=== PATIENT | male | born 1955 | race Caucasian/White ===

== ENCOUNTER 2018-12-12 21:37 | Emergency (ER) | payer MEDICARE ==
[~2018-12-12] VITALS: Wt 84.6 kg
--- NOTE | ~2018-12-12 | EKG ---
[place], [place] ELECTROCARDIOGRAM REPORT NAME: RUSS ELIZONDO UNIT #: [id number] ROOM: DOCTOR: EPIPHANY DRAFT REPORT BIRTHDATE: [birth year] [facility] Test Date: 2018-12-12 Test Time: 21:57:31 Pat Name: RUSS ELIZONDO Department: ER Room: 7 Gender: M [employer]: Elie Chen : 1955 Requested By: TAPAN PICHARDO Order Number: [id number] Reading MD: Ramonita Monteiro MD Measurements Intervals [place] Rate: 65 P: 6 HI: 164 QRS: -40 QRSD: 105 T: -6 QT: 380 QTc: 396 Interpretive Statements Sinus rhythm Left anterior fascicular block Abnormal R-wave progression, late transition Borderline T abnormalities, inferior leads Compared to ECG 09/25/2018 10:12:59 Left anterior fascicular block now present Left-axis deviation no longer present T-wave abnormality still present Electronically Signed On 12-13-2018 14:47:54 PDT by Ramonita Monteiro MD CM:EKGRPT:ELECTROCARDIOGRAM REPORT [id number] TAPAN PICHARDO MD EPIPHANY DRAFT REPORT TAPAN PICHARDO MD
[~2018-12-12 21:37] MED LIST: ANTIVERT25 MG PO; ASPI-COR81 M1 PO; ASPIRIN ADULT L81 M1 PO; ATIVAN1 MG PO; BISACODYL LAXATI5 MG PO; BISCOLAX10 M1 R; BUMEX1 MG PO; CARBIDOPA-LEVO1 EAC6 PO; CARBIDOPA/LEVOD1 TA1 PO; CARVEDILOL12.5 MG PO; CLONIDINE0.2 MG PO; COMTAN200 MG PO; COREG12.5 M1 PO; COREG12.5 MG PO; Cepacol PO; DOXYCYCLINE100 M3 PO; FLUDROCORTISON0.1 MG PO; GOOD SENSE400 MG/5 M PO; Ipratropium Brom3 ML NEB; K-DUR 20MEQ20 MEQ PO; KEPPRA500 MG PO; LISINOPRIL10 M1 PO; LISINOPRIL20 MG PO; LISINOPRIL40 MG PO; LISINOPRIL5 MG PO; MIDODRINE HCL5 M1 PO; MIRAPEX0.25 MG PO; MOTRIN 600 MG E4 TAB PO; NEURONTIN300 MG PO; NORVASC10 MG PO; NORVASC5 MG PO; PROZAC40 MG PO; SELEGILINE HCL5 M1 PO; SELEGILINE HCL5 M2 PO; SINEMET 25-1001 EACH PO; SINEMET CR 50-1 EACH PO; TAMIFLU 75MG CA75 MG PO; TYLENOL325 M2 PO; Vitamin D PO; ZOFRAN 4 MG ED2 TAB PO
[2018-12-12 22:09] LABS: BASO # 0.1 10*3/uL (0.0-0.1); EOS # 0.2 10*3/uL (0.0-0.4); HEMATOCRIT 46.5 % (42.0-52.0); HEMOGLOBIN 15.4 g/dl (14.0-18.0); LYMPH # 1.8 10*3/uL (1.3-4.4); LYMPH % 26.4 % (27.0-41.0); MEAN CELL VOLUME 92.3 fl (80.0-94.0); MEAN CORPUSCULAR HGB 30.6 pg (27.0-31.0); MEAN CORPUSCULAR HGB CONC 33.1 g/dl (33.0-37.0); MEAN PLATELET VOLUME 9.3 fl (9.6-12.3); MONO # 0.8 10*3/uL (0.1-1.0); MONO % 11.5 % (3.0-9.0); NEUT % 57.8 % (47.0-73.0); PLATELET COUNT AUTOMATED 200 10*3/uL (130-400); RED BLOOD COUNT 5.04 10*6/uL (4.50-5.90); RED CELL DISTRI WIDTH 13.6 % (0-14.5)
[2018-12-12 22:23] LABS: ACT PARTIAL THROMBO TIME 26.6 SECONDS (20.0-32.1)
[2018-12-12 22:25] LABS: ALBUMIN 3.8 gm/dl (3.1-4.5); ALKALINE PHOSPHATASE 71 U/L (45-117); BUN 18 mg/dl (7-24); CHLORIDE 106 mmol/L (98-107); CREATININE 1.05 mg/dL (0.70-1.30); LIPASE 182 U/L (73-393); POTASSIUM 3.7 mmol/L (3.5-5.1); SGOT/AST 16 IU/L (3-35); SGPT/ALT 8 U/L (12-78); SODIUM 139 mmol/L (136-145); TOTAL PROTEIN 6.7 gm/dL (6.4-8.2); TROPONIN I < 0.015 ng/ml (<0.045)
[2018-12-12] MEDS ORDERED: SINEMET 25-1001 EACH PO (23:08)
== END 2018-12-12 23:45 | disposition home or self-care (01) ==
LOC: ED 21:37
PROVIDERS: Emergency Medicine Emergency Medical Services
DX: G20 Parkinson's disease (principal); I10 Essential (primary) hypertension; G40.909 Epilepsy, unspecified, not intractable, without status epilepticus; R79.1 Abnormal coagulation profile; Z86.73 Personal history of transient ischemic attack (TIA), and cerebral infarction without residual deficits

== ENCOUNTER 2019-01-15 12:34 | Inpatient (IN) | payer MEDICARE ==
[~2019-01-15] VITALS: Ht 175.3 cm; Wt 82.6 kg
[2019-01-15] VITALS (7 sets, daily range): BP systolic 117–190; BP diastolic 75–112
--- NOTE | ~2019-01-15 | EKG ---
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
[2019-01-15 13:08] LABS: BASO # 0.1 10*3/uL (0.0-0.1); BASO % 0.7 % (0.0-1.0); EOS % 0.4 % (1.0-4.0); LYMPH # 0.7 10*3/uL (1.3-4.4); LYMPH % 9.9 % (27.0-41.0); MEAN CELL VOLUME 91.8 fl (80.0-94.0); MEAN CORPUSCULAR HGB 29.9 pg (27.0-31.0); MEAN CORPUSCULAR HGB CONC 32.6 g/dl (33.0-37.0); MEAN PLATELET VOLUME 8.9 fl (9.6-12.3); MONO # 0.5 10*3/uL (0.1-1.0); MONO % 7.7 % (3.0-9.0); NEUT # 5.6 10*3/uL (2.3-7.9); NEUT % 80.4 % (47.0-73.0); PLATELET COUNT AUTOMATED 200 10*3/uL (130-400); RED BLOOD COUNT 5.01 10*6/uL (4.50-5.90); RED CELL DISTRI WIDTH 13.4 % (0-14.5); WHITE BLOOD COUNT 6.9 10*3/uL (4.8-10.8)
[2019-01-15 13:18] LABS: ACT PARTIAL THROMBO TIME 24.7 SECONDS (20.0-32.1)
[2019-01-15 13:25] LABS: ALBUMIN 3.6 gm/dl (3.1-4.5); ALKALINE PHOSPHATASE 57 U/L (45-117); BUN 20 mg/dl (7-24); CHLORIDE 106 mmol/L (98-107); CREATININE 1.04 mg/dL (0.70-1.30); POTASSIUM 4.1 mmol/L (3.5-5.1); SGOT/AST 14 IU/L (3-35); SGPT/ALT 9 U/L (12-78); SODIUM 138 mmol/L (136-145); TOTAL PROTEIN 6.6 gm/dL (6.4-8.2)
[2019-01-15 13:28] LABS: TROPONIN I < 0.015 ng/ml (<0.045)
[2019-01-15 15:27] LABS: BILIRUBIN NEGATIVE (NEGATIVE); BLOOD NEGATIVE (NEGATIVE); CLARITY CLEAR (CLEAR); COLOR YELLOW (YELLOW); GLUCOSE NEGATIVE (NEGATIVE); KETONE NEGATIVE (NEGATIVE); LEUKO ESTERASE NEGATIVE (NEGATIVE); NITRITE NEGATIVE (NEGATIVE); SPECIFIC GRAVITY <= 1.005 (1.005-1.030); UROBILINOGEN 0.2 E.U./dl (0.2-1.0)
[2019-01-15] MEDS ORDERED: Sinemet Cr 50/21 TAB PO (15:38)
[2019-01-15] MEDS ORDERED: SINEMET 25-1001 EACH PO (15:40)
[2019-01-15 15:43] LABS: EPITHELIAL CELLS 0-2; WBC 0-2 wbc/hpf (0-5)
[2019-01-15] MEDS ORDERED: NORVASC5 MG PO (17:19)
[2019-01-15] MEDS ORDERED: ASPIRIN ADULT L81 M1 PO (17:20)
[2019-01-15] MEDS ORDERED: PRINIVIL5 M1 PO (17:21)
[2019-01-16] VITALS: BP 120/79
[2019-01-16 06:19] LABS: BASO # 0.1 10*3/uL (0.0-0.1); BASO % 0.9 % (0.0-1.0); EOS # 0.1 10*3/uL (0.0-0.4); EOS % 1.7 % (1.0-4.0); HEMATOCRIT 49.8 % (42.0-52.0); HEMOGLOBIN 16.1 g/dl (14.0-18.0); LYMPH # 1.8 10*3/uL (1.3-4.4); LYMPH % 23.4 % (27.0-41.0); MEAN CELL VOLUME 92.2 fl (80.0-94.0); MEAN CORPUSCULAR HGB 29.8 pg (27.0-31.0); MEAN CORPUSCULAR HGB CONC 32.3 g/dl (33.0-37.0); MEAN PLATELET VOLUME 9.3 fl (9.6-12.3); MONO # 0.8 10*3/uL (0.1-1.0); MONO % 10.1 % (3.0-9.0); NEUT # 4.8 10*3/uL (2.3-7.9); NEUT % 63.5 % (47.0-73.0); PLATELET COUNT AUTOMATED 227 10*3/uL (130-400); RED CELL DISTRI WIDTH 13.5 % (0-14.5); WHITE BLOOD COUNT 7.5 10*3/uL (4.8-10.8)
[2019-01-16 06:55] LABS: BUN 14 mg/dl (7-24); CHLORIDE 106 mmol/L (98-107); POTASSIUM 3.6 mmol/L (3.5-5.1); SODIUM 140 mmol/L (136-145)
[2019-01-16 06:58] LABS: ALKALINE PHOSPHATASE 68 U/L (45-117); CREATININE 0.98 mg/dL (0.70-1.30); PHOSPHOROUS 2.7 mg/dL (2.5-4.9); SGOT/AST 18 IU/L (3-35); SGPT/ALT 9 U/L (12-78); TOTAL PROTEIN 7.1 gm/dL (6.4-8.2)
[2019-01-16 08:00] VITALS: BP 147/86
[2019-01-16 12:00] VITALS: BP 145/85
[2019-01-16 16:00] VITALS: BP 143/81
== END 2019-01-16 17:39 | disposition home or self-care (01) | DRG 923 ==
LOC: ED 12:34 → 4E 14:01 → EDHOLD 14:01 → 4E 14:24
PROVIDERS: Family Medicine; ADMIT Emergency Medicine
DX: T67.5XXA Heat exhaustion, unspecified, initial encounter (principal); E86.0 Dehydration; R26.2 Difficulty in walking, not elsewhere classified; G20 Parkinson's disease; G40.909 Epilepsy, unspecified, not intractable, without status epilepticus; E55.9 Vitamin D deficiency, unspecified; F32.9 Major depressive disorder, single episode, unspecified; I10 Essential (primary) hypertension; R73.9 Hyperglycemia, unspecified; I16.0 Hypertensive urgency; X32.XXXA Exposure to sunlight, initial encounter; Y92.89 Other specified places as the place of occurrence of the external cause; Y93.H2 Activity, gardening and landscaping; Y99.8 Other external cause status; Z86.73 Personal history of transient ischemic attack (TIA), and cerebral infarction without residual deficits; Z82.49 Family history of ischemic heart disease and other diseases of the circulatory system

== ENCOUNTER 2019-04-22 09:24 | Emergency (ER) | payer MEDICARE ==
[~2019-04-22] VITALS: Ht 172.7 cm; Wt 83.9 kg
--- NOTE | ~2019-04-22 | EKG ---
[place], [place] ELECTROCARDIOGRAM REPORT NAME: RUSS ELIZONDO UNIT #: [id number] ROOM: DOCTOR: EMILIANO DRAFT REPORT BIRTHDATE: [birth year] [facility] Test Date: 2019-04-22 Test Time: 09:37:24 Pat Name: RUSS ELIZONDO Department: Room: Gender: Position Classifier: : 1955 Requested By: RAYMUNDO CADENA Order Number: [id number] Reading MD: Saw Crenshaw MD Measurements Intervals [place] Rate: 77 P: 22 MI: 161 QRS: -40 QRSD: 103 T: 2 QT: 369 QTc: 418 Interpretive Statements Sinus rhythm Left axis deviation Nonspecific IVCD Abnormal R-wave progression, late transition Electronically Signed On 04-23-2019 4:55:54 PDT by Saw Crenshaw MD CM:EKGRPT:ELECTROCARDIOGRAM REPORT [id number] RAYMUNDO CUMMINGS DRAFT REPORT RAYMUNDO CADENA MD
[~2019-04-22 09:24] MED LIST changes: +PRINIVIL5 M1 PO; +Sinemet Cr 50/21 TAB PO
[2019-04-22 09:53] LABS: BASO % 0.6 % (0.0-1.0); EOS # 0.1 10*3/uL (0.0-0.4); EOS % 0.7 % (1.0-4.0); HEMATOCRIT 46.9 % (42.0-52.0); HEMOGLOBIN 15.6 g/dl (14.0-18.0); LYMPH # 1.2 10*3/uL (1.3-4.4); LYMPH % 16.5 % (27.0-41.0); MEAN CELL VOLUME 92.1 fl (80.0-94.0); MEAN CORPUSCULAR HGB 30.6 pg (27.0-31.0); MEAN CORPUSCULAR HGB CONC 33.3 g/dl (33.0-37.0); MEAN PLATELET VOLUME 9.2 fl (9.6-12.3); MONO # 0.7 10*3/uL (0.1-1.0); MONO % 9.4 % (3.0-9.0); NEUT # 5.2 10*3/uL (2.3-7.9); NEUT % 72.4 % (47.0-73.0); PLATELET COUNT AUTOMATED 210 10*3/uL (130-400); RED BLOOD COUNT 5.09 10*6/uL (4.50-5.90); RED CELL DISTRI WIDTH 13.6 % (0-14.5); WHITE BLOOD COUNT 7.2 10*3/uL (4.8-10.8)
[2019-04-22 10:03] LABS: ACT PARTIAL THROMBO TIME 25.9 SECONDS (20.0-32.1)
[2019-04-22 10:13] LABS: ALBUMIN 4.1 gm/dl (3.1-4.5); ALKALINE PHOSPHATASE 59 U/L (45-117); BUN 35 mg/dl (7-24); CHLORIDE 103 mmol/L (98-107); POTASSIUM 4.1 mmol/L (3.5-5.1); SGOT/AST 74 IU/L (3-35); SGPT/ALT 15 U/L (12-78); SODIUM 135 mmol/L (136-145); TOTAL PROTEIN 7.2 gm/dL (6.4-8.2)
[2019-04-22 10:15] LABS: TROPONIN I < 0.015 ng/ml (<0.045)
[2019-04-22 11:03] LABS: BILIRUBIN NEGATIVE (NEGATIVE); BLOOD 2+ (NEGATIVE); CLARITY SL CLOUDY (CLEAR); COLOR YELLOW (YELLOW); GLUCOSE NEGATIVE (NEGATIVE); KETONE NEGATIVE (NEGATIVE); LEUKO ESTERASE NEGATIVE (NEGATIVE); NITRITE NEGATIVE (NEGATIVE); PH 5.5 (5.0-9.0); UROBILINOGEN 0.2 E.U./dl (0.2-1.0)
[2019-04-22 11:17] LABS: BACTERIA TRACE; CALCIUM OXALATE CRYSTALS 1+; EPITHELIAL CELLS 0-2
[2019-04-22 13:14] LABS: URINE AMPHETAMINES > 1000 (1000ng/ml); URINE BARBITURATES < 200 (200ng/ml); URINE BENZODIAZEPINES < 200 (200ng/ml); URINE CANNABINOIDS (THC) < 50 (50ng/ml); URINE COCAINE < 300 (300ng/ml); URINE METHADONE < 300 (300ng/ml); URINE OPIATES < 300 (300ng/ml)
[2019-04-22 13:15] LABS: URINE PHENCYCLIDINE < 25 (25ng/ml)
== END 2019-04-22 12:55 | disposition short-term general hospital (02) ==
LOC: ED 09:24
PROVIDERS: Emergency Medicine
DX: H53.2 Diplopia (principal); R42 Dizziness and giddiness; F14.10 Cocaine abuse, uncomplicated; I10 Essential (primary) hypertension; E66.3 Overweight; G40.909 Epilepsy, unspecified, not intractable, without status epilepticus; Z90.89 Acquired absence of other organs; Z86.73 Personal history of transient ischemic attack (TIA), and cerebral infarction without residual deficits; Z68.29 Body mass index [BMI] 29.0-29.9, adult; Z79.82 Long term (current) use of aspirin; Z79.899 Other long term (current) drug therapy

== ENCOUNTER 2020-02-11 05:14 | Emergency (ER) | payer MEDICARE ==
[~2020-02-11] VITALS: Ht 175.2 cm; Wt 81.6 kg
== END 2020-02-11 06:51 | disposition home or self-care (01) ==
LOC: ED 05:14
DX: R26.2 Difficulty in walking, not elsewhere classified (principal); G20 Parkinson's disease; I10 Essential (primary) hypertension; Z86.73 Personal history of transient ischemic attack (TIA), and cerebral infarction without residual deficits; Z79.899 Other long term (current) drug therapy; Z79.82 Long term (current) use of aspirin; W18.39XA Other fall on same level, initial encounter; Y93.89 Activity, other specified; Y92.098 Other place in other non-institutional residence as the place of occurrence of the external cause; Y99.8 Other external cause status

== ENCOUNTER 2020-05-30 09:52 | Observation (INO) | payer MEDICARE ==
[~2020-05-30] VITALS: Ht 172.7 cm; Wt 86.2 kg
[2020-05-30] VITALS (12 sets, daily range): BP systolic 126–186; BP diastolic 85–105
[2020-05-30 10:30] LABS: BASO # 0.1 10*3/uL (0.0-0.1); BASO % 0.6 % (0.0-1.0); EOS # 0.1 10*3/uL (0.0-0.4); EOS % 1.1 % (1.0-4.0); HEMATOCRIT 46.6 % (42.0-52.0); LYMPH # 1.6 10*3/uL (1.3-4.4); LYMPH % 20.2 % (27.0-41.0); MEAN CORPUSCULAR HGB 29.5 pg (27.0-31.0); MEAN CORPUSCULAR HGB CONC 32.4 g/dl (33.0-37.0); MONO # 0.7 10*3/uL (0.1-1.0); MONO % 8.4 % (3.0-9.0); NEUT # 5.6 10*3/uL (2.3-7.9); NEUT % 69.1 % (47.0-73.0); PLATELET COUNT AUTOMATED 199 10*3/uL (130-400); RED BLOOD COUNT 5.12 10*6/uL (4.50-5.90); RED CELL DISTRI WIDTH 13.7 % (0-14.5); WHITE BLOOD COUNT 8.1 10*3/uL (4.8-10.8)
[2020-05-30 10:52] LABS: ALBUMIN 3.9 gm/dl (3.1-4.5); ALKALINE PHOSPHATASE 64 U/L (45-117); BUN 19 mg/dl (7-24); CHLORIDE 107 mmol/L (98-107); CREATININE 0.99 mg/dL (0.70-1.30); POTASSIUM 4.1 mmol/L (3.5-5.1); SGOT/AST 17 IU/L (3-35); SGPT/ALT 10 U/L (12-78); SODIUM 139 mmol/L (136-145)
[2020-05-30 11:02] LABS: TROPONIN I < 0.015 ng/ml (<0.045)
--- NOTE | 2020-05-30 11:56 | NUR ---
PT. WAS NOT COMFORTABLE IN BED. PT. REQUESTED TO SIT IN WHEELCHAIR. PT. IS NOW SITTING IN WHEELCHAIR BESIDE BED. RR EASY AND NON-LABORED. CALL LIGHT WITHIN REACH. APPEARS TO BE IN NO DISTRESS AT THIS TIME. WILL CONTINUE TO MONITOR.
[2020-05-30] MEDS ORDERED: ENTACAPONE200 M1 PO (17:19)
[2020-05-30] MEDS ORDERED: LISINOPRIL20 MG PO (17:21)
[2020-05-30] MEDS ORDERED: MIRTAZAPINE15 M2 PO (17:22)
[2020-05-30] MEDS ORDERED: ATORVASTATIN CA80 M1 PO (17:22)
[2020-05-30] MEDS ORDERED: PLAVIX75 M1 PO (17:23)
--- NOTE | 2020-05-30 22:43 | NUR ---
PATIENT REQUESTED SOMETHING TO "HELP ME SLEEP" RESTORIL GIVEN PER ORDER. SEE MAR.
--- NOTE | 2020-05-30 23:20 | NUR ---
CALLED PODIATRY RESIDENT AND NOTIFIED HER OF CONSULT FOR TOE NAIL CARE. SHE AGREED TO TAKE PATIENT.
--- NOTE | 2020-05-30 23:40 | NUR ---
RESTORIL HELPING PER PATIENT IS GETTING DROWSY.
[2020-05-31] VITALS: BP 153/90
--- NOTE | 2020-05-31 05:05 | NUR ---
24 HR chart check completed.
[2020-05-31 05:40] VITALS: BP 139/75
--- NOTE | 2020-05-31 05:44 | NUR ---
MEDICAL RELEASE FORM SIGNED BY PATIENT FOR MEDICAL RECORDS FROM [facility]. COVID SWAB OBTAINED AND SENT TO LAB FOR TESTING. BP 139/75
[2020-05-31 06:37] LABS: BASO # 0.1 10*3/uL (0.0-0.1); BASO % 0.7 % (0.0-1.0); EOS # 0.1 10*3/uL (0.0-0.4); EOS % 1.6 % (1.0-4.0); HEMATOCRIT 47.7 % (42.0-52.0); LYMPH # 1.9 10*3/uL (1.3-4.4); LYMPH % 28.9 % (27.0-41.0); MEAN CORPUSCULAR HGB 28.6 pg (27.0-31.0); MEAN CORPUSCULAR HGB CONC 31.4 g/dl (33.0-37.0); MEAN PLATELET VOLUME 9.6 fl (9.6-12.3); MONO # 0.7 10*3/uL (0.1-1.0); NEUT # 3.9 10*3/uL (2.3-7.9); NEUT % 58.2 % (47.0-73.0); PLATELET COUNT AUTOMATED 199 10*3/uL (130-400); RED BLOOD COUNT 5.24 10*6/uL (4.50-5.90); RED CELL DISTRI WIDTH 13.3 % (0-14.5); WHITE BLOOD COUNT 6.7 10*3/uL (4.8-10.8)
[2020-05-31 06:48] LABS: ALBUMIN 3.5 gm/dl (3.1-4.5); ALKALINE PHOSPHATASE 54 U/L (45-117); BUN 18 mg/dl (7-24); CHLORIDE 107 mmol/L (98-107); CREATININE 0.95 mg/dL (0.70-1.30); POTASSIUM 4.1 mmol/L (3.5-5.1); SGOT/AST 13 IU/L (3-35); SGPT/ALT 9 U/L (12-78); SODIUM 140 mmol/L (136-145); TOTAL PROTEIN 6.3 gm/dL (6.4-8.2)
[2020-05-31 08:00] VITALS: BP 135/74
[2020-05-31 12:00] VITALS: BP 129/85
--- NOTE | 2020-05-31 15:43 | NUR ---
Shrimp Cleaner in to talk to patient. Patient states lives at home with family. There are no steps in the home. Physician: pepe [facility]connell [facility]acy: [facility] Home health services: none Patient's level of ADLs: MINIMAL ASSIST Patient has working utilities: all working DME: walker Follow-up physician's appointment after d/c: will be by hospitalist nurse director upon discharge Does patient want to access PORTAL?: no Discharge plan discussed with patient, he states he lives at home with family, he stated he was weak at this time, he has a walker to use for ambulation, discussed with him a short term prison for 5 days of rehab and he was receptive to this, given choice of facilities he stated he was at [facility] in the past and he would like to be referred there. referral will be made to [facility], case management will follow. DESI WILLIAMSON
[2020-05-31 16:00] VITALS: BP 147/87
[2020-05-31 20:00] VITALS: BP 102/65; BP 124/81
[2020-06-01] VITALS (7 sets, daily range): BP systolic 102–161; BP diastolic 60–94
--- NOTE | 2020-06-01 13:00 | NUR ---
Patient requesitng a referral to [facility] for rehab. Faxed initial referral, requires precert. Will need PT/OT evals, precert and covid test results prior to discharge.
--- NOTE | 2020-06-01 23:29 | NUR ---
New orders rec'd per Dr. Feldman to restart IV.
[2020-06-02] VITALS (8 sets, daily range): BP systolic 114–140; BP diastolic 72–92
--- NOTE | 2020-06-02 08:45 | NUR ---
Occupational Therapy evaluation completed on 5 with full eval to follow. Recommendations include OT per POC and SNF to enable return home alone at [facility]. Thank you Sabi Rodriguez OTR/L
--- NOTE | 2020-06-02 08:45 | NUR ---
PHYSICAL THERAPY Physical Therapy evaluation completed on 5th floor with full evaluation to follow. Recommend physical therapy per plan of care and SNF upon discharge. Thank you for this referral. Yudelka Fisher PT
--- NOTE | 2020-06-02 10:33 | NUR ---
CAMP NURSE FAXED PT/OT EVALS TO [facility] FOR PRECERT TO BE STARTED.
[2020-06-02] MEDS ORDERED: Zestril,Prinivi40 MG PO (12:54)
[2020-06-02] MEDS ORDERED: TEMAZEPAM15 M1 PO (12:54)
--- NOTE | 2020-06-02 13:22 | NUR ---
PRECERT HAS BEEN STARTED.
[2020-06-03] VITALS: BP 110/62
[2020-06-03 05:58] VITALS: BP 161/89
[2020-06-03 08:00] VITALS: BP 146/87
--- NOTE | 2020-06-03 08:25 | NUR ---
OT NOTE Pt was seen this A.M. 1:1 for 24 minute OT session. Upon arrival pt was supine in bed. Pt identified by name and and had no complaints at this time. Pt transferred supine to sit EOB with SBA. While sitting EOB pt donned pants and socks with SBA. Sit to stand completed from bed level with CGA for safety. Challenged pt's static standing tolerance needed for increased I in self care tasks and functional transfers. Pt was able to tolerate aprox 5 minutes at a time before sitting due to fatigue. Functional mobility completed to the bathroom with CGA and use of w/w. There he transferred on/off standard commode with CGA and use of grab bar for UE support. He then stood sink side while washing his hands with CGA for safety. Pt then required a seated rest break due to fatigue. Functional mobility completed from the bathroom to the recliner with CGA and use of w/w. Challenged pt's dynamic standing balance while weight shifting, crossing midline, and reaching over all planes and pt was able to maintain F- standing balance requiring UE support. Pt was left sitting upright in the recliner with call light in hand, tray table in place, and body alarm activated for safety. COntinue with rec D/C plan to SNF. ZAHEER Carter/Rylie
--- NOTE | 2020-06-03 08:48 | NUR ---
PRECERT STARTED ON 06/02/2020. PRINTING MACHINE OPERATOR FAXED UPDATES TO [facility].
--- NOTE | 2020-06-03 09:05 | NUR ---
PHYSICAL THERAPY TREATMENT TIME: OUT 08:15 AM 18 MINUTES TOTAL Patient presented to therapy n supine in bed wit hhead of bed slightly elevated and bed alarm on. Patient reports 0/10 pain. Patient gives informed consent for treatment. Patient was identified by name and on wristband. Patient performed supine to sitting on EOB with SBA. Patient sat on EOB with Supervision. Patient performed STS <> EOB with SBA. Patient ambulated to bathroom with Walker and Close Supervision 26' X 1 and then STS <> COMMODE with SBA. Patient ambulated another 15' x 1 with Wh Walker to chair where he sat in low chair for rest break with SBA. STS from low chair with SBA. Patient ambulated another 15' x 1 to bedside chair with CGA for safety because of LE weakness with no LOB. Patient required verbal cues for upright posture, pushing down on walker wiith hands, staying within CAMMIE of Walker and locking knees into extension to prevent knee buckle. Patient was left in bedside chair with call light within reach, chair alarm tested and attached to patient and LEs in low position. Tray table left in front of patient. Patient was 1:1 with this SCRATCH BRUSHER for 18 minutes total. MELY FELIX SCRATCH BRUSHER
--- NOTE | 2020-06-03 09:35 | NUR ---
MEDICATED WITH PRN PO MILK OF MAGNESIA FOR CONSTIPATION.
--- NOTE | 2020-06-03 11:33 | NUR ---
SOFTWARE DEVELOPMENT MANAGER COMPLETED HENS.
[2020-06-03] MEDS ORDERED: TEMAZEPAM15 M1 PO (11:49)
[2020-06-03] MEDS ORDERED: RESTORIL15 MG PO ×2 (11:51→11:54)
--- NOTE | 2020-06-03 11:54 | NUR ---
PRECERT FOR HAS BEEN OBTAINED.
--- NOTE | 2020-06-03 12:22 | NUR ---
NURSING PROGRAM COORDINATOR NOTIFIED OF PATIENT DISCHARGE. NURSING PROGRAM COORDINATOR SPOKE WITH ELEUTERIO ESCOBAR. NURSING PROGRAM COORDINATOR ARRANGED FOR [facility] TO TRANSPORT THE PATIENT AT 2PM. NURSING PROGRAM COORDINATOR NOTIFIED LEATHA PHELAN OF TRANSPORTATION TIME. ELMIRA REACHED OUT TO PATIENTS SISTER RAJIV. RAJIV IS UPSET STATING THAT THIS FACILITY HAS NOT DONE ANYTHING TO FIND THE ROOT OF THE PATIENTS HIGH/UNSTABLE BLOOD PRESSURES. SHE STATED THAT SHE IS UPSET WITH THE DISCONNECT BETWEEN PATIENT CARE, FAMILY, AND THE PROVIDERS. SHE IS UPSET WE ARE DISCHARGING THE PATIENT TO [facility]. SHE REQUESTED THAT SHE BE CONTACTED BY HIS PROVIDER. ELMIRA REACHED OUT TO ETHAN SAM TO HAVE HER CALL THIS PATIENTS SISTER.
--- NOTE | 2020-06-03 13:00 | NUR ---
PREPARING PATIENT FOR DISCHARGE TO [facility] BY AMBULANCE SERVICE AT 2PM TODAY.
--- NOTE | 2020-06-03 14:21 | NUR ---
REPORT CALLED TO RECEIVING NURSE AT [facility].
--- NOTE | 2020-06-03 14:53 | NUR ---
PATIENT DISCHARGED TO [facility] BY AMBULANCE SERVICE AT THIS TIME.
--- NOTE | 2020-06-04 13:21 | NUR ---
PHYSICAL THERAPY CO-SIGN I approve of the Physical Therapy notes written above. Yudelka Fisher PT
--- NOTE | 2020-06-04 16:45 | NUR ---
OCCUPATIONAL THERAPY CO-SIGN I approve of the Occupational Therapy notes written above. DEBBIE CUADRA OTR/Rylie
== END 2020-06-03 14:53 ==
LOC: ED 09:52 → EDHOLD 13:14 → 5E 13:14
PROVIDERS: Physician Assistant; Student in an Organized Health Care Education/Training Program; ADMIT Internal Medicine; ATTEND Internal Medicine
DX: I16.1 Hypertensive emergency (principal); R26.2 Difficulty in walking, not elsewhere classified; H53.2 Diplopia; R00.1 Bradycardia, unspecified; E83.41 Hypermagnesemia; I10 Essential (primary) hypertension; G20 Parkinson's disease; E55.9 Vitamin D deficiency, unspecified; F32.9 Major depressive disorder, single episode, unspecified; R27.0 Ataxia, unspecified; E66.3 Overweight; Z20.828 Contact with and (suspected) exposure to other viral communicable diseases

== ENCOUNTER 2020-06-13 09:33 | Emergency (ER) | payer MEDICARE ==
[~2020-06-13] VITALS: Ht 175.2 cm; Wt 85.3 kg
[~2020-06-13 09:33] MED LIST changes: +ATORVASTATIN CA80 M1 PO; +ENTACAPONE200 M1 PO; +MIRTAZAPINE15 M2 PO; +PLAVIX75 M1 PO; +RESTORIL15 MG PO; +TEMAZEPAM15 M1 PO; +Zestril,Prinivi40 MG PO
[2020-06-13 10:11] LABS: BASO # 0.1 10*3/uL (0.0-0.1); BASO % 0.7 % (0.0-1.0); EOS # 0.1 10*3/uL (0.0-0.4); EOS % 0.7 % (1.0-4.0); HEMATOCRIT 49.9 % (42.0-52.0); LYMPH # 1.4 10*3/uL (1.3-4.4); LYMPH % 21.4 % (27.0-41.0); MEAN CELL VOLUME 89.9 fl (80.0-94.0); MEAN CORPUSCULAR HGB 29.2 pg (27.0-31.0); MEAN CORPUSCULAR HGB CONC 32.5 g/dl (33.0-37.0); MEAN PLATELET VOLUME 9.6 fl (9.6-12.3); MONO # 0.6 10*3/uL (0.1-1.0); MONO % 8.8 % (3.0-9.0); NEUT # 4.6 10*3/uL (2.3-7.9); NEUT % 67.8 % (47.0-73.0); PLATELET COUNT AUTOMATED 204 10*3/uL (130-400); RED BLOOD COUNT 5.55 10*6/uL (4.50-5.90); RED CELL DISTRI WIDTH 13.6 % (0-14.5); WHITE BLOOD COUNT 6.7 10*3/uL (4.8-10.8)
[2020-06-13 10:28] LABS: ALBUMIN 3.8 gm/dl (3.1-4.5); ALKALINE PHOSPHATASE 71 U/L (45-117); BUN 22 mg/dl (7-24); CHLORIDE 107 mmol/L (98-107); CREATININE 1.03 mg/dL (0.70-1.30); POTASSIUM 4.3 mmol/L (3.5-5.1); SGOT/AST 16 IU/L (3-35); SGPT/ALT 12 U/L (12-78); SODIUM 140 mmol/L (136-145); TOTAL PROTEIN 6.9 gm/dL (6.4-8.2)
[2020-06-13 10:29] LABS: TROPONIN I < 0.015 ng/ml (<0.045)
[2020-06-13 10:45] LABS: BILIRUBIN Negative (Negative); BLOOD Negative (Negative); CLARITY Clear (Clear); COLOR Yellow (Yellow); GLUCOSE Negative (Negative); KETONE Negative (Negative); LEUKO ESTERASE Negative (Negative); NITRITE Negative (Negative); SPECIFIC GRAVITY 1.015 (1.001-1.030); UROBILINOGEN 0.2 E.U./dl (0.0-1.0)
[2020-06-13 11:17] LABS: EPITHELIAL CELLS 0-2; RBC 0-2 rbc/hpf (0-2)
== END 2020-06-13 13:16 | disposition other institution (70) ==
LOC: ED 09:33
PROVIDERS: Physician Assistant
DX: T50.905A Adverse effect of unspecified drugs, medicaments and biological substances, initial encounter (principal); Z79.899 Other long term (current) drug therapy; Y92.89 Other specified places as the place of occurrence of the external cause

== ENCOUNTER 2020-08-10 00:20 | Emergency (ER) | payer MEDICARE ==
[~2020-08-10] VITALS: Ht 172.7 cm; Wt 86.2 kg
[2020-08-10 01:15] LABS: BASO % 0.3 % (0.0-1.0); EOS # 0.2 10*3/uL (0.0-0.4); EOS % 1.6 % (1.0-4.0); HEMATOCRIT 45.5 % (42.0-52.0); LYMPH % 9.4 % (27.0-41.0); MEAN CELL VOLUME 92.5 fl (80.0-94.0); MEAN CORPUSCULAR HGB 28.9 pg (27.0-31.0); MEAN CORPUSCULAR HGB CONC 31.2 g/dl (33.0-37.0); MEAN PLATELET VOLUME 9.8 fl (9.6-12.3); MONO # 1.3 10*3/uL (0.1-1.0); MONO % 12.1 % (3.0-9.0); NEUT # 7.8 10*3/uL (2.3-7.9); NEUT % 76.1 % (47.0-73.0); PLATELET COUNT AUTOMATED 214 10*3/uL (130-400); RED BLOOD COUNT 4.92 10*6/uL (4.50-5.90); RED CELL DISTRI WIDTH 13.5 % (0-14.5); WHITE BLOOD COUNT 10.3 10*3/uL (4.8-10.8)
[2020-08-10 01:31] LABS: ALBUMIN 3.2 gm/dl (3.1-4.5); ALKALINE PHOSPHATASE 68 U/L (45-117); BUN 30 mg/dl (7-24); CHLORIDE 107 mmol/L (98-107); CREATININE 1.19 mg/dL (0.70-1.30); POTASSIUM 4.2 mmol/L (3.5-5.1); SGOT/AST 12 IU/L (3-35); SGPT/ALT 9 U/L (12-78); SODIUM 139 mmol/L (136-145); TOTAL PROTEIN 6.5 gm/dL (6.4-8.2)
== END 2020-08-10 05:10 ==
LOC: ED 00:20
PROVIDERS: Emergency Medicine
DX: N39.0 Urinary tract infection, site not specified (principal); R33.9 Retention of urine, unspecified; I10 Essential (primary) hypertension; G20 Parkinson's disease; F32.9 Major depressive disorder, single episode, unspecified; G40.909 Epilepsy, unspecified, not intractable, without status epilepticus; Z79.899 Other long term (current) drug therapy; Z90.89 Acquired absence of other organs; Z86.73 Personal history of transient ischemic attack (TIA), and cerebral infarction without residual deficits

== ENCOUNTER → 2020-08-19 | Outpatient (CLI) | payer MEDICARE | END | disposition home or self-care (01) | LOC: CT 00:18 | PROVIDERS: ATTEND Urology | DX: N40.0 Benign prostatic hyperplasia without lower urinary tract symptoms (principal); Q79.1 Other congenital malformations of diaphragm; K57.30 Diverticulosis of large intestine without perforation or abscess without bleeding; K40.90 Unilateral inguinal hernia, without obstruction or gangrene, not specified as recurrent; N28.89 Other specified disorders of kidney and ureter; K76.89 Other specified diseases of liver; Z96.0 Presence of urogenital implants ==

== ENCOUNTER → 2020-09-05 | Outpatient (CLI) | payer MEDICARE | END | disposition home or self-care (01) | LOC: US 10:28 | PROVIDERS: ATTEND Urology | DX: N28.89 Other specified disorders of kidney and ureter (principal) ==

== ENCOUNTER 2021-01-04 16:11 | Emergency (ER) | payer MEDICARE ==
[~2021-01-04] VITALS: Wt 84.4 kg
[2021-01-04 16:45] LABS: BASO # 0.1 10*3/uL (0.0-0.1); BASO % 0.8 % (0.0-1.0); EOS # 0.1 10*3/uL (0.0-0.4); EOS % 1.1 % (1.0-4.0); HEMATOCRIT 51.1 % (42.0-52.0); MEAN CELL VOLUME 92.1 fl (80.0-94.0); MEAN CORPUSCULAR HGB 29.4 pg (27.0-31.0); MEAN CORPUSCULAR HGB CONC 31.9 g/dl (33.0-37.0); MEAN PLATELET VOLUME 9.5 fl (9.6-12.3); MONO # 0.9 10*3/uL (0.1-1.0); MONO % 11.2 % (3.0-9.0); NEUT # 4.8 10*3/uL (2.3-7.9); NEUT % 61.4 % (47.0-73.0); PLATELET COUNT AUTOMATED 222 10*3/uL (130-400); RED BLOOD COUNT 5.55 10*6/uL (4.50-5.90); RED CELL DISTRI WIDTH 13.1 % (0-14.5); WHITE BLOOD COUNT 7.8 10*3/uL (4.8-10.8)
[2021-01-04 16:59] LABS: BUN 21 mg/dl (7-24); CHLORIDE 108 mmol/L (98-107); CREATININE 1.04 mg/dL (0.70-1.30); POTASSIUM 4.2 mmol/L (3.5-5.1); SODIUM 140 mmol/L (136-145)
[2021-01-04 17:31] LABS: ALBUMIN 3.7 gm/dl (3.1-4.5); ALKALINE PHOSPHATASE 80 U/L (45-117); BILIRUBIN, DIRECT 0.2 mg/dL (0.0-0.2); SGOT/AST 11 IU/L (3-35); SGPT/ALT 14 U/L (12-78); TOTAL PROTEIN 6.7 gm/dL (6.4-8.2)
[2021-01-04 17:39] LABS: ETHYL ALCOHOL < 3.0 mg/dl (<3)
[2021-01-04 17:55] LABS: BILIRUBIN Negative (Negative); BLOOD Negative (Negative); CLARITY Clear (Clear); COLOR Yellow (Yellow); GLUCOSE Negative (Negative); KETONE Trace (Negative); LEUKO ESTERASE Negative (Negative); NITRITE Negative (Negative)
[2021-01-04 18:04] LABS: URINE AMPHETAMINES < 1000 (1000ng/ml); URINE BARBITURATES < 200 (200ng/ml); URINE BENZODIAZEPINES < 200 (200ng/ml); URINE CANNABINOIDS (THC) < 50 (50ng/ml); URINE COCAINE < 300 (300ng/ml); URINE METHADONE < 300 (300ng/ml); URINE OPIATES < 300 (300ng/ml)
[2021-01-04 18:05] LABS: BACTERIA TRACE; EPITHELIAL CELLS 0-2; FINE GRANULAR CAST 0-2; RBC 0-2 rbc/hpf (0-2); WBC 0-2 wbc/hpf (0-5)
[2021-01-04 18:07] LABS: URINE PHENCYCLIDINE < 25 (25ng/ml)
== END 2021-01-04 18:26 ==
LOC: ED 16:11
PROVIDERS: Emergency Medicine
DX: F43.21 Adjustment disorder with depressed mood (principal); G20 Parkinson's disease; F32.9 Major depressive disorder, single episode, unspecified; I10 Essential (primary) hypertension; G40.909 Epilepsy, unspecified, not intractable, without status epilepticus; Z79.899 Other long term (current) drug therapy; Z86.73 Personal history of transient ischemic attack (TIA), and cerebral infarction without residual deficits; Z90.89 Acquired absence of other organs; W19.XXXA Unspecified fall, initial encounter; Y93.89 Activity, other specified; Y92.128 Other place in nursing home as the place of occurrence of the external cause; Y99.8 Other external cause status

== ENCOUNTER 2021-04-23 08:59 | Emergency (ER) | payer MEDICARE ==
[~2021-04-23] VITALS: Wt 99.8 kg
[2021-04-23 09:47] LABS: BASO # 0.1 10*3/uL (0.0-0.1); BASO % 0.7 % (0.0-1.0); EOS # 0.1 10*3/uL (0.0-0.4); EOS % 0.8 % (1.0-4.0); HEMATOCRIT 48.3 % (42.0-52.0); LYMPH # 1.4 10*3/uL (1.3-4.4); LYMPH % 19.3 % (27.0-41.0); MEAN CELL VOLUME 93.2 fl (80.0-94.0); MEAN CORPUSCULAR HGB 30.7 pg (27.0-31.0); MEAN CORPUSCULAR HGB CONC 32.9 g/dl (33.0-37.0); MONO # 0.6 10*3/uL (0.1-1.0); MONO % 8.1 % (3.0-9.0); NEUT # 5.1 10*3/uL (2.3-7.9); NEUT % 70.5 % (47.0-73.0); PLATELET COUNT AUTOMATED 204 10*3/uL (130-400); RED BLOOD COUNT 5.18 10*6/uL (4.50-5.90); WHITE BLOOD COUNT 7.3 10*3/uL (4.8-10.8)
[2021-04-23 10:05] LABS: BUN 13 mg/dl (7-24); CHLORIDE 107 mmol/L (98-107); CREATININE 1.08 mg/dL (0.70-1.30); SODIUM 139 mmol/L (136-145)
[2021-04-23 10:14] LABS: BILIRUBIN Negative (Negative); BLOOD Negative (Negative); CLARITY Clear (Clear); COLOR Yellow (Yellow); GLUCOSE Negative (Negative); KETONE Negative (Negative); LEUKO ESTERASE Negative (Negative); NITRITE Negative (Negative); PH 7.5 (4.5-8.0); SPECIFIC GRAVITY 1.015 (1.001-1.030)
[2021-04-23 10:42] LABS: BACTERIA TRACE
== END 2021-04-23 12:21 ==
LOC: ED 08:59
PROVIDERS: Emergency Medicine
DX: M54.2 Cervicalgia (principal); M25.561 Pain in right knee; G20 Parkinson's disease; E04.1 Nontoxic single thyroid nodule; I10 Essential (primary) hypertension; G40.909 Epilepsy, unspecified, not intractable, without status epilepticus; Z79.899 Other long term (current) drug therapy; W18.39XA Other fall on same level, initial encounter; Y93.89 Activity, other specified; Y92.128 Other place in nursing home as the place of occurrence of the external cause; Y99.8 Other external cause status

== ENCOUNTER 2021-08-18 11:32 | Emergency (ER) | payer MEDICARE ==
[~2021-08-18] VITALS: Ht 172.7 cm; Wt 93.4 kg
== END 2021-08-18 17:00 | disposition home or self-care (01) ==
LOC: ED 11:32
DX: S00.93XA Contusion of unspecified part of head, initial encounter (principal); I10 Essential (primary) hypertension; Z86.73 Personal history of transient ischemic attack (TIA), and cerebral infarction without residual deficits; Z79.899 Other long term (current) drug therapy; Z90.89 Acquired absence of other organs; X58.XXXA Exposure to other specified factors, initial encounter; Y93.89 Activity, other specified; Y92.89 Other specified places as the place of occurrence of the external cause; Y99.8 Other external cause status

== ENCOUNTER → 2022-11-18 | Outpatient (CLI) | payer MEDICARE | END | disposition home or self-care (01) | LOC: CT 01:08 | PROVIDERS: ATTEND Internal Medicine | DX: J98.11 Atelectasis (principal); J90 Pleural effusion, not elsewhere classified; I51.7 Cardiomegaly; I25.10 Atherosclerotic heart disease of native coronary artery without angina pectoris; J18.9 Pneumonia, unspecified organism; R91.1 Solitary pulmonary nodule ==

== ENCOUNTER 2023-02-10 14:07 | Emergency (ER) | payer MEDICARE ==
[~2023-02-10] VITALS: Ht 172.7 cm; Wt 86.6 kg
[~2023-02-10 14:07] MED LIST changes: +'CLONIDINE0.1 MG PO; +CITALOPRAM20 MG PO; +COLACE100 MG PO; +FLOMAX0.4 MG PO; +GABAPENTIN100 M2 PO; +HYDROCHLOROTHIA25 M1 PO; +LEVETIRACETAM500 MG PO; +MELATONIN10 M2 PO; +TRAZODONE50 MG PO; +XANAX0.25 MG PO
[2023-02-10] MEDS ORDERED: TYLENOL325 M1 PO (14:16)
[2023-02-10] MEDS ORDERED: ASPIRIN81 M1 PO (14:16)
[2023-02-10] MEDS ORDERED: DULCOLAX10 M1 R (14:18)
[2023-02-10] MEDS ORDERED: HYDR25T PO (14:19)
[2023-02-10 14:34] LABS: BASO # 0.1 10*3/uL (0.0-0.1); EOS # 0.3 10*3/uL (0.0-0.4); EOS % 3.5 % (1.0-4.0); HEMATOCRIT 50.8 % (42.0-52.0); LYMPH # 1.5 10*3/uL (1.3-4.4); LYMPH % 21.7 % (27.0-41.0); MEAN CELL VOLUME 94.1 fl (80.0-94.0); MEAN CORPUSCULAR HGB 30.7 pg (27.0-31.0); MEAN CORPUSCULAR HGB CONC 32.7 g/dl (33.0-37.0); MEAN PLATELET VOLUME 9.5 fl (9.6-12.3); MONO # 0.6 10*3/uL (0.1-1.0); MONO % 7.8 % (3.0-9.0); NEUT # 4.6 10*3/uL (2.3-7.9); NEUT % 65.1 % (47.0-73.0); PLATELET COUNT AUTOMATED 194 10*3/uL (130-400); RED CELL DISTRI WIDTH 13.4 % (0-14.5); WHITE BLOOD COUNT 7.1 10*3/uL (4.8-10.8)
[2023-02-10 14:58] LABS: ALKALINE PHOSPHATASE 80 U/L (46-116); BUN 22 mg/dl (9-23); CHLORIDE 100 mmol/L (98-107); LIPASE 49 U/L (12-53); POTASSIUM 3.6 mmol/L (3.4-5.1); TOTAL PROTEIN 6.9 gm/dL (6.0-8.0)
[2023-02-10 15:08] LABS: ACT PARTIAL THROMBO TIME 28.8 SECONDS (20.0-32.1); INTERNATIONAL NORM RATIO 1.1 (2.0-3.5)
[2023-02-10 15:10] LABS: ETHYL ALCOHOL < 3.0 mg/dl (<3); SGPT/ALT < 7 U/L (10-49)
[2023-02-10 15:11] LABS: BILIRUBIN Negative (Negative); BLOOD Negative (Negative); CLARITY Clear (Clear); COLOR Yellow (Yellow); GLUCOSE Negative (Negative); KETONE Trace (Negative); LEUKO ESTERASE Negative (Negative); NITRITE Negative (Negative)
[2023-02-10 15:18] LABS: URINE AMPHETAMINES Negative (1000ng/ml); URINE BARBITURATES Negative (200ng/ml); URINE BENZODIAZEPINES Positive (200ng/ml); URINE CANNABINOIDS (THC) Negative (50ng/ml); URINE COCAINE Negative (300ng/ml); URINE METHADONE Negative (300ng/ml); URINE OPIATES Negative (300ng/ml); URINE PHENCYCLIDINE Negative (25ng/ml)
[2023-02-10 15:28] LABS: BACTERIA TRACE; RBC 0-2 rbc/hpf (0-2); WBC 0-2 wbc/hpf (0-5)
== END 2023-02-10 16:35 ==
LOC: ED 14:07
PROVIDERS: Internal Medicine
DX: E86.0 Dehydration (principal); I10 Essential (primary) hypertension; F32.A Depression, unspecified; Z90.89 Acquired absence of other organs; F14.10 Cocaine abuse, uncomplicated; Z79.899 Other long term (current) drug therapy

== ENCOUNTER 2023-02-27 22:14 | Emergency (ER) | payer MEDICARE ==
[~2023-02-27] VITALS: Ht 172.7 cm; Wt 68.0 kg
[~2023-02-27 22:14] MED LIST changes: +ASPIRIN81 M1 PO; +DULCOLAX10 M1 R; +HYDR25T PO; +TYLENOL325 M1 PO
[2023-02-27 22:39] LABS: BASO # 0.1 10*3/uL (0.0-0.1); BASO % 0.9 % (0.0-1.0); EOS # 0.2 10*3/uL (0.0-0.4); HEMATOCRIT 48.1 % (42.0-52.0); LYMPH # 1.8 10*3/uL (1.3-4.4); LYMPH % 24.7 % (27.0-41.0); MEAN CORPUSCULAR HGB CONC 32.2 g/dl (33.0-37.0); MEAN PLATELET VOLUME 9.6 fl (9.6-12.3); MONO # 0.9 10*3/uL (0.1-1.0); MONO % 11.7 % (3.0-9.0); NEUT # 4.4 10*3/uL (2.3-7.9); NEUT % 59.8 % (47.0-73.0); PLATELET COUNT AUTOMATED 197 10*3/uL (130-400); RED BLOOD COUNT 5.17 10*6/uL (4.50-5.90); RED CELL DISTRI WIDTH 13.3 % (0-14.5); WHITE BLOOD COUNT 7.4 10*3/uL (4.8-10.8)
[2023-02-27 23:04] LABS: ALKALINE PHOSPHATASE 82 U/L (46-116); BUN 23 mg/dl (9-23); CHLORIDE 103 mmol/L (98-107); POTASSIUM 3.9 mmol/L (3.4-5.1); TOTAL PROTEIN 6.5 gm/dL (6.0-8.0)
[2023-02-27 23:05] LABS: SGPT/ALT < 7 U/L (10-49)
[2023-02-28 00:12] LABS: BILIRUBIN Negative (Negative); BLOOD Negative (Negative); CLARITY Clear (Clear); COLOR Yellow (Yellow); GLUCOSE Negative (Negative); KETONE Trace (Negative); LEUKO ESTERASE Negative (Negative); NITRITE Negative (Negative); PH 5.5 (4.5-8.0); SPECIFIC GRAVITY 1.025 (1.001-1.030)
[2023-02-28 00:49] LABS: WBC 0-2 wbc/hpf (0-5)
== END 2023-02-28 02:04 ==
LOC: ED 22:14
PROVIDERS: Internal Medicine
DX: Z00.00 Encounter for general adult medical examination without abnormal findings (principal); I10 Essential (primary) hypertension; F32.A Depression, unspecified; Z90.89 Acquired absence of other organs; F14.10 Cocaine abuse, uncomplicated